=== PATIENT | male | born 1980 | race Two or more races ===

== ENCOUNTER 2017-01-16 08:50 | Emergency (ER) | payer OTHER ==
[~2017-01-16] VITALS: Ht 190.5 cm; Wt 104.8 kg
[~2017-01-16 08:50] MED LIST: BENA25TA4 PO; FISH100049 PO; INDO25CA PO; TYLE325T5 PO; VITA500055 PO
[2017-01-16] MEDS ORDERED: NS 500 ML IV ONE (09:00)
[2017-01-16] MEDS ORDERED: VERA240C PO (09:36)
[2017-01-16] MEDS ORDERED: SYNT100T PO (09:36)
[2017-01-16] MEDS ORDERED: OMEP40CA2 PO (09:36)
[2017-01-16] MEDS ORDERED: VERA120T2 PO (09:36)
[2017-01-16 09:39] LABS: BASO % 0.5 % (0.0-1.0); EOS # 0.1 K/mm3 (0.0-0.50); EOS % 2.3 % (0.0-3.0); LARGE UNSTAINED CELL # 0.1 K/mm3 (0.0-0.4); LARGE UNSTAINED CELL % 0.9 % (0.0-4.0); LYMPH # 1.1 K/mm3 (1.5-4.5); LYMPH % 17.4 % (24.0-44.0); MEAN CORPUSCULAR HEMOGLOBIN 30.3 pg (27.0-33.0); MEAN CORPUSCULAR HGB CONC 34.9 g/dl (32.0-36.5); MEAN CORPUSCULAR VOLUME 86.8 fl (80.0-96.0); MONO # 0.3 K/mm3 (0.0-0.8); MONO % 5.9 % (0.0-5.0); NEUTROPHILS # 4.3 K/mm3 (1.8-7.7); NEUTROPHILS % 73.1 % (36.0-66.0); PLATELET COUNT, AUTOMATED 209 k/mm3 (150-450); RED CELL DISTRIBUTION WIDTH 13.2 % (11.5-14.5); WHITE BLOOD COUNT 5.8 K/mm3 (4.0-10.0)
[2017-01-16 10:00] LABS: ANION GAP 8 MEQ/L (8-16); BLOOD UREA NITROGEN 16 MG/DL (7-18); CALCIUM LEVEL 9.5 MG/DL (8.5-10.1); CARBON DIOXIDE LEVEL 24 MEQ/L (21-32); CHLORIDE LEVEL 107 MEQ/L (98-107); CREATININE FOR GFR 1.28 MG/DL (0.70-1.30); GLOMERULAR FILTRATION RATE > 60.0 (>60); GLUCOSE, FASTING 103 MG/DL (70-105); POTASSIUM SERUM 3.6 MEQ/L (3.5-5.1); SODIUM LEVEL 139 MEQ/L (136-145)
[2017-01-16 14:37] VITALS: BP 136/85
--- NOTE | 2017-01-16 15:26 | REP ---
PORTABLE CHEST: SINGLE VIEW: COMPARISON: 05/22/2016 There is no evidence of acute infiltrate. No pleural effusion is seen. The heart is normal in size. The mediastinal silhouette is unremarkable. The visualized osseous structures are intact. IMPRESSION: No acute pulmonary disease. Signed by Jordin Chilel MD 01/16/2017 04:24 P
--- NOTE | 2017-01-16 16:45 | ECGEPIP ---
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
--- NOTE | 2017-01-16 17:00 | ECGEPIP ---
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
== END 2017-01-16 14:39 | disposition home or self-care (01) ==
LOC: EDBD 08:50 → M ED 09:22
DX: R07.9 Chest pain, unspecified (principal); R06.02 Shortness of breath; I10 Essential (primary) hypertension; F41.9 Anxiety disorder, unspecified; E03.9 Hypothyroidism, unspecified; Z79.899 Other long term (current) drug therapy; Z88.1 Allergy status to other antibiotic agents; Z86.79 Personal history of other diseases of the circulatory system

== ENCOUNTER 2017-02-14 04:31 | Emergency (ER) | payer OTHER ==
[~2017-02-14] VITALS: Ht 190.5 cm; Wt 104.8 kg
[~2017-02-14 04:31] MED LIST changes: +OMEP40CA2 PO; +SYNT100T PO; +VERA120T2 PO; +VERA240C PO
[2017-02-14] MEDS ORDERED: NS 1,000 ML IV ONE ×2 (05:15→06:30)
[2017-02-14] MEDS ORDERED: KETOROLAC 30 MG/ML VIAL (J1885) IV ONE (05:15)
[2017-02-14 05:28] LABS: BASO # 0.1 K/mm3 (0.0-0.2); BASO % 1.2 % (0.0-1.0); EOS # 0.2 K/mm3 (0.0-0.50); EOS % 3.4 % (0.0-3.0); LARGE UNSTAINED CELL # 0.1 K/mm3 (0.0-0.4); LARGE UNSTAINED CELL % 1.6 % (0.0-4.0); LYMPH # 1.4 K/mm3 (1.5-4.5); LYMPH % 24.2 % (24.0-44.0); MEAN CORPUSCULAR HEMOGLOBIN 30.9 pg (27.0-33.0); MEAN CORPUSCULAR VOLUME 88.3 fl (80.0-96.0); MONO # 0.3 K/mm3 (0.0-0.8); MONO % 5.5 % (0.0-5.0); NEUTROPHILS # 3.5 K/mm3 (1.8-7.7); PLATELET COUNT, AUTOMATED 239 k/mm3 (150-450); WHITE BLOOD COUNT 5.4 K/mm3 (4.0-10.0)
[2017-02-14 05:54] LABS: ALBUMIN 3.7 GM/DL (3.2-5.2); ALBUMIN/GLOBULIN RATIO 0.95 (1.00-1.93); ALKALINE PHOSPHATASE 88 U/L (45-117); ALT/SGPT 42 U/L (12-78); AMYLASE 41 U/L (25-115); ANION GAP 7 MEQ/L (8-16); AST/SGOT 16 U/L (15-37); BILIRUBIN,DIRECT < 0.1 MG/DL (0.0-0.2); BILIRUBIN,TOTAL 0.3 MG/DL (0.2-1.0); BLOOD UREA NITROGEN 19 MG/DL (7-18); CALCIUM LEVEL 8.4 MG/DL (8.5-10.1); CARBON DIOXIDE LEVEL 26 MEQ/L (21-32); CHLORIDE LEVEL 108 MEQ/L (98-107); CREATININE FOR GFR 1.22 MG/DL (0.70-1.30); GLOMERULAR FILTRATION RATE > 60.0 (>60); GLUCOSE, FASTING 109 MG/DL (70-105); SODIUM LEVEL 141 MEQ/L (136-145); TOTAL PROTEIN 7.6 GM/DL (6.4-8.2)
[2017-02-14] MEDS ORDERED: MORPHINE 4 MG/ML 1ML SYRINGE IV ONE (06:00)
[2017-02-14] MEDS ORDERED: TAMSULOSIN 0.4 MG CAP PO ONE (06:15)
--- NOTE | 2017-02-14 07:00 | REPUSA ---
CLINICAL HISTORY: Abdominal pain. TECHNIQUE: Multiple axial, sagittal and coronal CT images were obtained through the abdomen and pelvi s without administration of oral or IV contrast material. COMMENTS: The liver is of uniform attenuation without mass or defect. There is no intra or extrahepatic biliary ductal dilatation. The spleen is normal. The gallbladder is within normal limits. The pancreas is of normal contour and attenuation characteristics. There is no evidence of adrenal mass. 3.5 mm obstructing stone of the right ureter at L4/L5 level. Mild right hydroureteronephrosis. Left renal nonobstructing stones with the largest measuring 3 mm. There is no evidence for appendicitis. There is no bowel wall thickening. No evidence for small or la rge bowel obstruction. There is no evidence of abdominal ascites or lymphadenopathy. There is no evidence of intrinsic or extrinsic bladder mass. There is no pelvic ascites or lymphadeno wojciech. Diffuse thickening of the bladder. Mild large bowel fecal stasis. Images of the lung bases show no evidence of pleural or parenchymal mass. There are no pleural effusi ons. The bony structures are free of lytic or blastic lesions. IMPRESSION: Obstructing stone of the right ureter. Nonobstructing left nephrolithiasis. Thickened bladder. Thank you for your kind referral of this patient.
[2017-02-14] MEDS ORDERED: IBUP600T26 PO (08:52)
[2017-02-14] MEDS ORDERED: PERC5TAB6 PO (08:52)
[2017-02-14] MEDS ORDERED: FLOM5CAP PO (08:52)
[2017-02-14 09:06] VITALS: BP 126/68
== END 2017-02-14 09:07 | disposition home or self-care (01) ==
LOC: M ED 05:30
DX: N20.1 Calculus of ureter (principal); R11.0 Nausea; E03.9 Hypothyroidism, unspecified; K21.9 Gastro-esophageal reflux disease without esophagitis; I47.1 Supraventricular tachycardia; Z79.899 Other long term (current) drug therapy
CPT/HCPCS: 36415; 74176; 80048; 80076; 81001; 82150; 83690; 85025; 87086; 96374; 96375; 99283; J1885

== ENCOUNTER 2017-02-25 15:35 | Day surgery (SDC) | payer OTHER ==
[~2017-02-25] VITALS: Ht 190.5 cm; Wt 106.1 kg
[~2017-02-25 15:35] MED LIST changes: +FLOM5CAP PO; +IBUP600T26 PO; +PERC5TAB6 PO
[2017-02-25] MEDS ORDERED: ONDANSETRON 4MG/2ML VIAL (J2405) IV ONE (16:00)
[2017-02-25] MEDS ORDERED: KETOROLAC 30 MG/ML VIAL (J1885) IV ONE (16:00)
[2017-02-25] MEDS ORDERED: HYDROmorphone HCL 1 MG/ML SYRINGE (J1170) IV PRN (16:00)
[2017-02-25] MEDS ORDERED: NS 1,000 ML IV ONE (16:00)
[2017-02-25 16:26] LABS: BASO % 0.6 % (0.0-1.0); EOS # 0.2 K/mm3 (0.0-0.50); EOS % 3.2 % (0.0-3.0); LARGE UNSTAINED CELL # 0.1 K/mm3 (0.0-0.4); LARGE UNSTAINED CELL % 1.7 % (0.0-4.0); LYMPH # 1.9 K/mm3 (1.5-4.5); LYMPH % 31.6 % (24.0-44.0); MEAN CORPUSCULAR HEMOGLOBIN 30.1 pg (27.0-33.0); MEAN CORPUSCULAR HGB CONC 34.2 g/dl (32.0-36.5); MEAN CORPUSCULAR VOLUME 88.1 fl (80.0-96.0); MONO # 0.4 K/mm3 (0.0-0.8); MONO % 6.4 % (0.0-5.0); NEUTROPHILS # 3.3 K/mm3 (1.8-7.7); NEUTROPHILS % 56.5 % (36.0-66.0); PLATELET COUNT, AUTOMATED 206 k/mm3 (150-450); RED CELL DISTRIBUTION WIDTH 12.8 % (11.5-14.5); WHITE BLOOD COUNT 5.8 K/mm3 (4.0-10.0)
[2017-02-25 16:27] LABS: CALCIUM LEVEL 8.3 MG/DL (8.5-10.1); CREATININE FOR GFR 1.81 MG/DL (0.70-1.30); GLOMERULAR FILTRATION RATE 45.1 (>60); POTASSIUM SERUM 3.9 MEQ/L (3.5-5.1)
[2017-02-25] MEDS ORDERED: CONRAY-60 60% 50ML VIAL (Q9961) As Ordered ONE (16:41)
[2017-02-25] MEDS ORDERED: MIDAZOLAM INJ 2 MG/2 ML VIAL (J2250) As Ordered ONE (16:46)
[2017-02-25] MEDS ORDERED: fentaNYL 100 MCG/2 ML INJECTION (J3010) As Ordered ONE (16:46)
[2017-02-25] MEDS ORDERED: LIDOCAINE 2% INJ 100 MG/5 ML SDV (FOR ANES.) As Ordered ONE (16:48)
[2017-02-25] MEDS ORDERED: dexameTHASONE 4 MG/ML 1ML VIAL (J1100) As Ordered ONE (16:48)
[2017-02-25] MEDS ORDERED: PROPOFOL 200 MG/20 ML VIAL As Ordered ONE (16:48)
[2017-02-25] MEDS ORDERED: LevoFLOXacin(LEVAQUIN)500 MG/100 ML BAG (J1956) As Ordered ONE (16:59)
[2017-02-25] MEDS ORDERED: LevoFLOXacin IV 500 MG in APPROPRIATE DILUENT 1 EA IV ONE (17:00)
[2017-02-25] MEDS ORDERED: ONDANSETRON 4MG/2ML VIAL (J2405) As Ordered ONE (17:32)
--- NOTE | 2017-02-25 17:55 | REP ---
Clinical: Right-sided nephroureterolithiasis. Technique: Real time fluoroscopic imaging. Findings: Two intraoperative fluoroscopic images demonstrate the patient to be status post right ureteral stent placement in satisfactory position. Total fluoroscopic time 29 seconds. Impression: Status post right ureteral stent placement. Signed by Jean-Paul Abernathy MD 02/25/2017 05:47 P
[2017-02-25] MEDS ORDERED: ANEXSIA, NORCO 7.5MG/325MG TABLET(HYDROCODONE/APAP) PO PRN (18:00)
[2017-02-25] MEDS ORDERED: HYDR-3716 PO (18:05)
[2017-02-25] MEDS ORDERED: SMZ-800T PO (18:05)
[2017-02-25] MEDS ORDERED: fentaNYL 100 MCG/2 ML INJECTION (J3010) IV PRN (18:15)
[2017-02-25] MEDS ORDERED: PERCOCET 5MG/325MG TAB PO PRN (18:15)
[2017-02-25] MEDS ORDERED: ONDANSETRON 4MG/2ML VIAL (J2405) IV PRN (18:15)
[2017-02-25] MEDS ORDERED: LR 1,000 ML IV SCH (18:15)
[2017-02-25 18:55] VITALS: BP 186/94
[2017-02-25 19:25] VITALS: BP 164/82
[2017-02-25 20:00] VITALS: BP 164/92
[2017-02-25] MEDS ORDERED: VERAPAMIL 40 MG TAB PO ONE (20:30)
[2017-02-25] MEDS ORDERED: VERAPAMIL 120 MG SR TAB PO ONE (20:45)
[2017-02-25 21:00] VITALS: BP 173/87
[2017-02-25] MEDS ORDERED: BACTRIM 160MG/800MG DS TAB PO SCH (21:00)
[2017-02-25 21:15] VITALS: BP 164/92
[2017-02-25 22:00] VITALS: BP 176/98
--- NOTE | 2017-02-26 04:30 | HPE ---
DATE OF ADMISSION: 02/25/2017 CHIEF COMPLAINT: 3.5 mm mid right ureteral stone with hydronephrosis and intractable pain, failed conservative management. HISTORY OF PRESENT ILLNESS: This is a very pleasant 36-year-old male who was in the emergency room on . He has been suffering with right flank pain for about 11 days. When he was in the emergency room 4 days ago, he was found to have a 3.5 mm mid right ureteral stone at the L4-L5 level. He was treated with Flomax, antiemetics, Toradol, and pain medicine and was able to be discharged. His pain was colicky at that time and coming and going. Since then, he says the pain has been constant and he has not been able to get any relief and he came back to the emergency room today. The location of the pain has not moved at all. It still remains in his flank. He denies any fever or chills and his white count remains normal. His creatinine, however, has gone up to 1.8. PAST MEDICAL HISTORY: Significant for hypertension and hypothyroidism. PAST SURGICAL HISTORY: Includes elbow and cardiac ablation. ALLERGIES: None. MEDICATIONS: Are listed on chart and include verapamil, levothyroxine, omeprazole, Percocet, and Flomax. SOCIAL HISTORY: He denies any alcohol, tobacco or illicit drugs. FAMILY HISTORY: Positive for colon cancer in his father and hypertension. REVIEW OF SYSTEMS: Positive only for the flank pain and some nausea. He denies any chest pain or shortness of breath, any hematuria, hematochezia, hemoptysis, bloody emesis, headaches, seizure, stroke, numbness or weakness of the extremities, nausea, vomiting, diarrhea, constipation, fever, or chills. On exam, he is a very pleasant 36-year-old male who is well developed, well nourished, in no acute distress. He is alert and oriented. HEENT is normocephalic, atraumatic. Neck is supple without lymphadenopathy or thyromegaly. Cardiovascular is regular rate and rhythm without rubs, gallops or murmurs. Lung salas are clear to auscultation bilaterally. Abdomen is soft, nontender, nondistended. There is no hepatosplenomegaly or palpable masses or costovertebral angle (CVA) tenderness. Extremities show no clubbing, cyanosis or edema. Genitourinary () exam revealed normal male genitalia with bilateral descended testicles. LABORATORIES: White blood cell count is 5.8, creatinine is 1.8 up from 1.2 on . Urinalysis done 4 days ago was clear. IMAGIN.5 mm mid right ureteral stone with mild hydronephrosis and hydroureter. Nonobstructing stones in the left kidney, small in size. ASSESSMENT: 3.5 mm right mid ureteral stone, failed conservative management. PLAN: We will go ahead and take him to the operating room and extract the stone with cystoscopy, right retrograde pyelography, right ureteroscopy, stone basket extraction, laser if necessary and stent. The patient was given consent for the procedure, the risks, benefits, alternatives and he is aware he will wear that stent for a week and will need to have it taken out as an outpatient with his local urologist in approximately 1 week. He expressed understanding and he would like to proceed.
--- NOTE | 2017-02-26 10:42 | RO ---
DATE OF PROCEDURE: 02/25/2017 PREOPERATIVE DIAGNOSIS: 3.5 mm mid ureteral stone, failed conservative management. POSTOPERATIVE DIAGNOSIS: 3.5 mm mid ureteral stone, failed conservative management. PROCEDURE: Cystoscopy, right retrograde pyelography, dilatation of right ureteral orifice, right ureteroscopy, stone basket extraction of distal one third ureteral 3.5 mm stone, and right ureteral stent placement. SURGEON: Gilda De La Rosa MD CLIMATOLOGY TEACHER: ANESTHESIA: General endotracheal anesthesia. DESCRIPTION OF PROCEDURE: Proper patient was identified. Informed consent was obtained. All risks and benefits were explained. Patient was then taken to the operative suite, laid in supine position. General endotracheal anesthesia was administered. Once anesthesia was obtained, he was prepped and draped in the usual sterile fashion in the dorsal lithotomy position. We initiated the procedure by advancing a #22-Upper [place] cystoscope with 30 degree lens under direct vision into the bladder. There was no abnormalities noted but a pendulous bulbus urethra. There was some mild hypertrophy of the prostatic urethra as we entered the bladder. We drained the bladder. We were able to identify the right ureteral orifice, which was mildly edematous. We then attempted to pass a Pollack catheter, however, it was a little to blunt to do this, so we used our wire, passed the wire up into the renal pelvis and then we were able to pass the Pollack catheter over the wire into the distal ureter. We then removed the wire and performed a gentle retrograde pyelogram. The proximal ureter was dilated and we could see a filling defect down in the lower third of the ureter. We then withdrew the Pollack, drained the bladder and used a rigid ureteroscope. We were unable to enter the ureteral orifice, so we removed the rigid ureteroscope and used a short ureteral access sheath to dilate the ureteral orifice. We then were able to advance the rigid uteroscope into the distal ureter and up to where we encountered the stone, which is about approximately 3 cm above the ureteral orifice. At this point, we were able to engage it with a ZeroTip Nitinol basket and withdraw it intact. We then reentered the ureteroscope into the ureteral to ensure that there were no other fragments. We went all the way up into the proximal ureter and there were no other stones that were visualized. We were easily able to remove the rigid ureteroscope. Because we had dilated ureteral orifice, I felt he would be best served with a stent so we exchanged for the cystoscope and passed a 5 multi length double J stent over the wire. We confirmed its placement fluoroscopically in the kidney and under direct vision in the bladder. At this point, we drained the bladder and terminated the procedure. Patient was awakened and taken to the postanesthesia care unit in stable condition. DISPOSITION: He will be discharged home and will followup with local urology for stent removal in one week.
[2017-03-06 00:06] LABS: Size 3x3x3 mm (.)
== END 2017-02-25 22:05 | disposition home or self-care (01) ==
LOC: M ED 16:15 → EDBEDREQ 16:19 → M SDC 16:36 → M PED 19:07 → M SDC 22:05
PROVIDERS: ATTEND Urology
DX: N20.1 Calculus of ureter (principal); N35.9 Urethral stricture, unspecified; R11.0 Nausea; I11.9 Hypertensive heart disease without heart failure; M54.9 Dorsalgia, unspecified; K21.9 Gastro-esophageal reflux disease without esophagitis; G47.30 Sleep apnea, unspecified; I47.1 Supraventricular tachycardia; E03.9 Hypothyroidism, unspecified; Z87.442 Personal history of urinary calculi; Z95.5 Presence of coronary angioplasty implant and graft
CPT/HCPCS: 52332; 52352; 74420; 80048; 82360; 85025; 88300; 96374; 96375; 99284; C1726; C1894; C2617; J1100; J1170; J1885; J1956; J2250; J2405; J3010; Q9961

== ENCOUNTER → 2017-03-30 | Outpatient (REF) | payer OTHER ==
[~2017-03-30] MED LIST changes: +HYDR-3716 PO; +SMZ-800T PO
== END ==
LOC: M LAB REF 11:33
PROVIDERS: ATTEND Urology
DX: N20.0 Calculus of kidney (principal)

== ENCOUNTER 2017-07-15 19:02 | Emergency (ER) | payer OTHER ==
[~2017-07-15] VITALS: Ht 190.5 cm; Wt 109.1 kg
[~2017-07-15 19:02] MED LIST changes: +IBUP-1022 PO; -IBUP600T26 PO; +PERC5TAB12 PO; -PERC5TAB6 PO; -SMZ-800T PO; +SULF1TAB23 PO
[2017-07-15 19:06] VITALS: BP 149/99
[2017-07-15] MEDS ORDERED: MAXA5TAB10 PO (19:12)
[2017-07-15] MEDS ORDERED: TOPI100T9 PO (19:12)
[2017-07-15] MEDS ORDERED: RIBO400T PO (19:13)
== END 2017-07-15 22:28 | disposition left against medical advice (07) ==
LOC: M ED 19:02
DX: R10.9 Unspecified abdominal pain (principal); Z53.21 Procedure and treatment not carried out due to patient leaving prior to being seen by health care provider

== ENCOUNTER 2017-08-23 12:17 | Emergency (ER) | payer OTHER ==
[~2017-08-23] VITALS: Ht 188 cm; Wt 111.4 kg
[~2017-08-23 12:17] MED LIST changes: +MAXA5TAB10 PO; +RIBO400T PO; +TOPI100T9 PO
[2017-08-23] MEDS ORDERED: diphenhydrAMINE INJ 50MG/ML VIAL (J1200) IV STA (12:32)
[2017-08-23] MEDS ORDERED: METOCLOPRAMIDE INJ 10MG/2ML VIAL (J2765) IV ONE (12:45)
[2017-08-23] MEDS ORDERED: NS 1,000 ML IV ONE (12:45)
[2017-08-23] MEDS ORDERED: KETOROLAC 30 MG/ML VIAL (J1885) IV ONE (12:45)
[2017-08-23 14:12] VITALS: BP 143/81
== END 2017-08-23 14:32 | disposition home or self-care (01) ==
LOC: M ED 12:17
DX: G43.709 Chronic migraine without aura, not intractable, without status migrainosus (principal); Z79.899 Other long term (current) drug therapy; Z87.891 Personal history of nicotine dependence; Z86.69 Personal history of other diseases of the nervous system and sense organs
CPT/HCPCS: 96374; 96375; 99284; J1200; J1885; J2765

== ENCOUNTER 2019-03-01 04:35 | Emergency (ER) | payer OTHER ==
[~2019-03-01] VITALS: Ht 190.5 cm; Wt 102.3 kg
[~2019-03-01 04:35] MED LIST changes: +AIMO70IN IM; +BUPR150T3 PO; +CARV12.5 PO; +DEPA1TAB3 PO; +DEPA250T32 PO; +FLOM0.4C39 PO; -FLOM5CAP PO; +KETO10TAB PO; +LOSA25TA14 PO; +METO10TA2; +ONDA4TAB6; +REFR0.1D; -SULF1TAB23 PO; +SULF1TAB93 PO; +TIZA2TA PO; +TRAM50TA2; +ZOLP12.515 PO
[2019-03-01 05:22] LABS: BASO % 0.7 % (0.0-1.0); EOS # 0.2 10^3/uL (0.0-0.50); EOS % 3.9 % (0.0-3.0); HEMATOCRIT 42.7 % (42.0-52.0); HEMOGLOBIN 14.7 g/dl (13.5-17.5); LYMPH % 33.4 % (24.0-44.0); MEAN CORPUSCULAR HEMOGLOBIN 30.4 pg (27.0-33.0); MEAN CORPUSCULAR HGB CONC 34.4 g/dl (32.0-36.5); MEAN CORPUSCULAR VOLUME 88.2 fl (80.0-96.0); MONO # 0.5 10^3/uL (0.0-0.8); MONO % 8.4 % (0.0-5.0); NEUTROPHILS # 3.2 10^3/uL (1.8-7.7); NEUTROPHILS % 53.3 % (36.0-66.0); PLATELET COUNT, AUTOMATED 219 10^3/uL (150-450); RED BLOOD COUNT 4.84 10^6/uL (4.30-6.10); WHITE BLOOD COUNT 5.9 10^3/uL (4.0-10.0)
[2019-03-01 05:47] LABS: ALBUMIN 3.9 GM/DL (3.2-5.2); ALT/SGPT 34 U/L (12-78); BILIRUBIN,DIRECT 0.1 MG/DL (0.0-0.2); BILIRUBIN,TOTAL 0.5 MG/DL (0.2-1.0); BLOOD UREA NITROGEN 15 MG/DL (7-18); CALCIUM LEVEL 8.9 MG/DL (8.5-10.1); CARBON DIOXIDE LEVEL 28 MEQ/L (21-32); CHLORIDE LEVEL 108 MEQ/L (98-107); CREATININE FOR GFR 1.27 MG/DL (0.70-1.30); GLOMERULAR FILTRATION RATE > 60.0 (>60); GLUCOSE, FASTING 106 MG/DL (70-100); LIPASE 198 U/L (73-393); POTASSIUM SERUM 3.7 MEQ/L (3.5-5.1); SODIUM LEVEL 143 MEQ/L (136-145)
[2019-03-01 05:56] LABS: APPEARANCE, URINE CLEAR (CLEAR); BACTERIA, URINE AUTO NEGATIVE (NEGATIVE); BILIRUBIN, URINE AUTO NEGATIVE (NEGATIVE); BLOOD, URINE BLOOD 2+ (NEGATIVE); COLOR, URINE YELLOW (YELLOW); GLUCOSE, URINE (UA) AUTO NEGATIVE (NEGATIVE); KETONE, URINE AUTO NEGATIVE (NEGATIVE); LEUKOCYTE ESTERASE, URINE AUTO NEGATIVE (NEGATIVE); MUCUS, URINE SMALL (NEGATIVE); NITRITE, URINE AUTO NEGATIVE (NEGATIVE); PROTEIN, URINE AUTO NEGATIVE (NEGATIVE); RBC, URINE AUTO 28 /HPF (0-3); SPECIFIC GRAVITY URINE AUTO 1.021 (1.002-1.035); SQUAMOUS EPITHELIAL CELL UR AU 0 /HPF (0-6); UROBILINOGEN, URINE AUTO 0.2 mg/dL (0.0-2.0); WBC, URINE AUTO 1 /HPF (0-3)
[2019-03-01] MEDS ORDERED: KETOROLAC 30 MG/ML VIAL (J1885) IV ONE (06:00)
[2019-03-01] MEDS ORDERED: ONDANSETRON 4MG/2ML VIAL (J2405) IV ONE (06:00)
--- NOTE | 2019-03-01 06:05 | REPVR ---
EXAM: CT Abdomen and Pelvis Without Contrast EXAM DATE/TIME: 03/01/2019 4:55 AM CLINICAL HISTORY: 38 years old, male; Abdominal pain; Flank; Left; Additional info: Flank pain TECHNIQUE: Imaging protocol: Axial computed tomography images of the abdomen and pelvis without contrast. Coronal and sagittal reformatted images were created and reviewed. Radiation optimization: All CT scans at this facility use at least one of these dose optimization techniques: automated exposure control; mA and/or kV adjustment per patient size (includes targeted exams where dose is matched to clinical indication); or iterative reconstruction. COMPARISON: CT ABD PELVIS W/O CONTRAST 02/14/2017 6:18 AM FINDINGS: ABDOMEN: Liver: Normal. No mass. Gallbladder and bile ducts: Normal. No calcified stones. No ductal dilation. Pancreas: The pancreatic head and neck are unremarkable. The body and tail of the pancreas are not visualized. Spleen: Normal. No splenomegaly. Adrenals: Normal. No mass. Kidneys and ureters: There is 2-3 mm left renal stone. Stomach and bowel: Normal. No obstruction. No mucosal thickening. Appendix: No evidence of appendicitis. PELVIS: Bladder: Unremarkable as visualized. Reproductive: Unremarkable as visualized. ABDOMEN and PELVIS: Intraperitoneal space: Normal. No free air. No significant fluid collection. Bones/joints: No acute fracture. No dislocation. Soft tissues: There is a small right inguinal fat containing hernia. There is a 2 mm midline calcification in the penis (axial image 167). Vasculature: Normal. No abdominal aortic aneurysm. Lymph nodes: There is nonspecific multiple shotty mesenteric lymph nodes more prominent in the right abdomen. IMPRESSION: 1. 2-3 mm nonobstructing left renal stone. No hydronephrosis or hydroureter seen. 2. 2 mm midline penile calcification could represent stone in transit. Correlate with patient's symptoms and clinical history. 3. Small right inguinal fat containing hernia. 4. Shotty mesenteric lymph nodes more prominent in the right abdomen of unclear etiology or clinical significance, grossly unchanged since the prior exam of 2017. 5. 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 Correlate with patient's clinical and surgical history. Electronically signed by: Toby Siu On 03/01/2019 06:04:18 AM
[2019-03-01] MEDS ORDERED: FLOM0.4C39 PO ×2 (06:43→06:44)
[2019-03-01] MEDS ORDERED: OXYCODONE/APAP 5MG/325MG(BULK FOR ED) 1 TABLET PO ONE (06:45)
[2019-03-01] MEDS ORDERED: TAMSULOSIN 0.4 MG CAP PO ONE (06:45)
[2019-03-01 08:03] VITALS: BP 121/67
--- NOTE | 2019-03-01 09:35 | ED PDOC ---
Post-Departure Follow-Up [facility] faxed formal report o ct abd/p for fu Chaitanya Marin MD March 01, 2019 09:35
== END 2019-03-01 08:04 | disposition home or self-care (01) ==
LOC: M ED 04:35
DX: N20.1 Calculus of ureter (principal); R11.0 Nausea; Z87.442 Personal history of urinary calculi; Z87.820 Personal history of traumatic brain injury; Z79.899 Other long term (current) drug therapy
CPT/HCPCS: 74176; 80048; 80076; 81001; 83690; 85025; 87086; 96374; 96375; 99284; J1885; J2405

== ENCOUNTER → 2020-08-31 | Outpatient (REF) | payer OTHER ==
[~2020-08-31] MED LIST changes: +INDO-16 PO; -INDO25CA PO; -OMEP40CA2 PO; +OMEP40CA97 PO; -VERA120T2 PO; +VERA120T9 PO; -ZOLP12.515 PO; +ZOLP12.518 PO
== END ==
LOC: M LAB REF 16:00
PROVIDERS: ATTEND Physician Assistant
DX: J02.9 Acute pharyngitis, unspecified (principal)

== ENCOUNTER → 2023-06-14 | Outpatient (CLI) | payer OTHER ==
[~2023-06-14] MED LIST changes: +BACTDSTA PO; +BUPR150T12 PO; -BUPR150T3 PO; +LOSA25TA13 PO; -LOSA25TA14 PO; +OMEP40CA4 PO; -OMEP40CA97 PO; -SULF1TAB93 PO
== END ==
LOC: M RAD 16:26
PROVIDERS: ATTEND Student in an Organized Health Care Education/Training Program
DX: M25.532 Pain in left wrist (principal)

== ENCOUNTER 2024-05-28 10:31 | Day surgery (SDC) | payer OTHER ==
[~2024-05-28] VITALS: Ht 193 cm; Wt 114.8 kg
[~2024-05-28 10:31] MED LIST changes: +ONDA-282; -ONDA4TAB6; -ZOLP12.518 PO; +ZOLP12.535 PO
[2024-05-28 11:37] LABS: BASO % 0.5 % (0.0-1.0); EOS # 0.2 10^3/uL (0.0-0.5); EOS % 2.5 % (0.0-3.0); HEMATOCRIT 42.2 % (42.0-52.0); HEMOGLOBIN 14.3 g/dl (13.5-17.5); LYMPH % 16.7 % (24.0-44.0); MEAN CORPUSCULAR HEMOGLOBIN 30.5 pg (27.0-33.0); MEAN CORPUSCULAR HGB CONC 33.9 g/dl (32.0-36.5); MONO # 0.5 10^3/uL (0.0-0.8); MONO % 7.4 % (2.0-8.0); NEUTROPHILS # 4.4 10^3/uL (1.5-8.5); NEUTROPHILS % 72.4 % (36.0-66.0); PLATELET COUNT, AUTOMATED 225 10^3/uL (150-450); RED BLOOD COUNT 4.69 10^6/uL (4.30-6.10); WHITE BLOOD COUNT 6.1 10^3/uL (4.0-10.0)
[2024-05-28] MEDS: ONDANSETRON 4MG 2ML VIAL IV ONE (12:00)
[2024-05-28] MEDS: MORPHINE 4 MG/ML 1ML VIAL IV ONE (12:00)
[2024-05-28] MEDS: NS 500 ML IV ONE (12:00)
[2024-05-28 12:09] LABS: BILIRUBIN,DIRECT 0.1 MG/DL (<0.4); BILIRUBIN,TOTAL 0.4 MG/DL (0.3-1.2); CALCIUM LEVEL 9.5 MG/DL (8.5-10.1); CREATININE FOR GFR 1.93 MG/DL (0.70-1.30); GLOMERULAR FILTRATION RATE 40.3 (>60); POTASSIUM SERUM 4.7 MMOL/L (3.5-5.1); TOTAL PROTEIN 7.5 G/DL (5.7-8.2)
[2024-05-28] MEDS: HYDROMORPHONE HCL 0.5 MG/ 0.5 ML SYRINGE IV ONE (13:05)
[2024-05-28] MEDS ORDERED: MIDAZOLAM INJ 2MG/2ML VIAL As Ordered ONE (14:14)
[2024-05-28] MEDS ORDERED: LIDOCAINE 2% 100MG/5ML SDV (FOR ANES.) As Ordered ONE (14:15)
[2024-05-28] MEDS ORDERED: ONDANSETRON 4MG 2ML VIAL As Ordered ONE (14:15)
[2024-05-28] MEDS ORDERED: propofoL 200 MG/20 ML VIAL As Ordered ONE (14:15)
[2024-05-28] MEDS ORDERED: fentaNYL 100 MCG/2 ML INJECTION As Ordered ONE (14:15)
[2024-05-28] MEDS ORDERED: ISOVUE-300 61% 100ML VIAL As Ordered ONE (14:17)
[2024-05-28] MEDS ORDERED: OMEP40CA5 PO (14:50)
[2024-05-28] MEDS ORDERED: TAMS1CAP17 PO (14:50)
[2024-05-28] MEDS ORDERED: RIZA10TA58 PO (14:51)
[2024-05-28] MEDS ORDERED: LEVO100T5 PO (14:51)
[2024-05-28] MEDS: ceFAZolin SOD 2 GM in IV 1 EA IV ONE (15:00)
[2024-05-28] MEDS: ceFAZolin 2 GM/D5W 50 ML IV BAG As Ordered ONE (15:00)
[2024-05-28] MEDS: LIDOCAINE 2% 5ML JELLY UROJET As Ordered ONE (15:10)
[2024-05-28] MEDS ORDERED: KETOROLAC 60MG 2ML VIAL As Ordered ONE (15:12)
[2024-05-28] MEDS ORDERED: ACETAMINOPHEN 1000MG 100ML IV BAG As Ordered ONE (15:12)
[2024-05-28] MEDS ORDERED: MEPERIDINE 25 MG/ML 1ML VIAL IV PRN (15:35)
[2024-05-28] MEDS ORDERED: fentaNYL 100 MCG/2 ML INJECTION IV PRN (15:35)
[2024-05-28] MEDS ORDERED: LR 1,000 ML IV SCH (15:35)
[2024-05-28] MEDS ORDERED: ONDANSETRON 4MG 2ML VIAL IV PRN (15:35)
[2024-05-28] MEDS ORDERED: METOCLOPRAMIDE INJ 10MG/2ML VIAL IV PRN (15:35)
[2024-05-28] MEDS ORDERED: oxyCODONE 5MG TAB PO PRN (15:35)
[2024-05-28] MEDS ORDERED: MORPHINE 2 MG/ML 1ML VIAL IV PRN (15:35)
[2024-05-28] MEDS ORDERED: PERCOCET 5MG/325MG TAB PO PRN (16:05)
[2024-05-28] MEDS ORDERED: IBUP-1022 PO (16:07)
[2024-05-28] MEDS ORDERED: LEVO50TA5 PO (16:07)
[2024-05-28] MEDS ORDERED: ACET-683 PO (16:07)
[2024-05-28] MEDS ORDERED: HOME MED LIST COMPLETE! XX SCH (16:10)
[2024-05-28 17:01] VITALS: BP 149/80; TEMP 97.4; O2SAT 97
== END 2024-05-28 17:07 | disposition home or self-care (01) ==
LOC: M ED 10:31 → M SDC 10:32
PROVIDERS: ATTEND Urology
DX: N20.1 Calculus of ureter (principal); Z87.442 Personal history of urinary calculi; I10 Essential (primary) hypertension; G47.30 Sleep apnea, unspecified; E03.9 Hypothyroidism, unspecified; R11.0 Nausea; Z87.820 Personal history of traumatic brain injury; G44.009 Cluster headache syndrome, unspecified, not intractable; M51.26 Other intervertebral disc displacement, lumbar region; F99 Mental disorder, not otherwise specified; Z79.899 Other long term (current) drug therapy; Z79.890 Hormone replacement therapy; Z88.1 Allergy status to other antibiotic agents
CPT/HCPCS: 52332; 52352; 76000; 80047; 80048; 80076; 81001; 82365; 85025; 96374; 96375; 99284; C1769; C1894; C2617; J0131; J0690; J1100; J1170; J1885; J2250; J2405; J3010; Q9967

== ENCOUNTER 2024-08-12 19:12 | Emergency (ER) | payer OTHER ==
[~2024-08-12] VITALS: Ht 193 cm; Wt 116.8 kg
[~2024-08-12 19:12] MED LIST changes: +ACET-683 PO; +LEVO100T5 PO; +LEVO50TA5 PO; +OMEP40CA5 PO; +RIZA10TA58 PO; +TAMS1CAP17 PO
[2024-08-12] MEDS: METOCLOPRAMIDE INJ 10MG/2ML VIAL IV ONE (21:06)
[2024-08-12] MEDS: KETOROLAC 30 MG/ML 1ML VIAL IV ONE (21:07)
[2024-08-12] MEDS: ACETAMINOPHEN *IV* 1,000 MG in IV 1 EA IV ONE (22:32)
[2024-08-12 23:00] VITALS: BP 134/85; TEMP 97.3; O2SAT 96
== END 2024-08-12 23:04 | disposition home or self-care (01) ==
LOC: M ED 19:12
DX: G43.909 Migraine, unspecified, not intractable, without status migrainosus (principal); I10 Essential (primary) hypertension; G47.33 Obstructive sleep apnea (adult) (pediatric); N40.0 Benign prostatic hyperplasia without lower urinary tract symptoms; E03.9 Hypothyroidism, unspecified; F32.A Depression, unspecified; Z87.442 Personal history of urinary calculi; Z88.1 Allergy status to other antibiotic agents; Z79.1 Long term (current) use of non-steroidal anti-inflammatories (NSAID); Z79.811 Long term (current) use of aromatase inhibitors; Z79.899 Other long term (current) drug therapy
CPT/HCPCS: 96365; 96375; 99284; J0131; J1100; J1885; J2765

== ENCOUNTER → 2025-07-07 | Outpatient (CLI) | payer OTHER ==
[~2025-07-07] MED LIST changes: -DEPA250T32 PO; +DIVA-65 PO; -FLOM0.4C39 PO; -IBUP-1022 PO; +IBUP600T42 PO; +TAMS-18 PO; +TOPI-257 PO; -TOPI100T9 PO
[2025-07-07 15:23] LABS: PSA SCREENING 0.49 NG/ML (< 4.00)
[2025-07-07 15:28] LABS: TESTOSTERONE 354.0 NG/DL (241-827)
== END ==
LOC: M WUC 12:00
PROVIDERS: ATTEND Urology
DX: E29.1 Testicular hypofunction (principal); Z12.5 Encounter for screening for malignant neoplasm of prostate
CPT/HCPCS: 36415; 84403; 85014; 85018; G0103